=== PATIENT | female | born 1985 | race African-American/Black ===

== ENCOUNTER 2024-08-26 02:03 | Emergency (ER) | payer OTHER ==
[2024-08-26 02:13] VITALS: BP 148/86; BMI 29.1
[2024-08-26] MEDS ORDERED: FAMOTIDINE 20 MG/50 ML IVPB 20 MG/50 ML MG IVPB ONE (02:28)
[2024-08-26] MEDS ORDERED: ACETAMINOPHEN INJECTION 100 ML ONE (02:28)
[2024-08-26] MEDS ORDERED: ONDANSETRON 4 MG/2 ML VIAL ONE (02:28)
[2024-08-26] MEDS: SODIUM CHLORIDE 1,000 ML IV STA (02:49)
[2024-08-26] MEDS: ONDANSETRON 4 MG/2 ML VIAL IVPB ONE (02:50)
[2024-08-26] MEDS: ACETAMINOPHEN 1000 MG/100 ML BAG IVPB ONE (02:50)
[2024-08-26] MEDS: FAMOTIDINE 20 MG/50 ML IVPB 20 MG/50 ML MG IVPB ONE (02:50)
[2024-08-26] MEDS: ALBUTEROL SO4 2.5/IPRATROPIUM 0.5 INH SOL 3 ML VIAL.NEB. NEB SCH (02:51)
[2024-08-26 02:56] LABS: HEMATOCRIT 37.6 % (32.4-45.2); HEMOGLOBIN 12.7 GM/dL (10.7-15.3); MCH 31.9 pg (25.7-33.7); MCHC 33.8 g/dl (32.0-36.0); MEAN CELL VOLUME 94.5 fl (80-96); MEAN PLT VOLUME 6.7 fl (7.5-11.1); PLATELET COUNT 272 10^3/uL (134-434); RBC 3.98 M/mm3 (3.60-5.2); RDW 14.3 % (11.6-15.6); WHITE BLOOD COUNT 5.9 K/mm3 (4.0-10.0)
[2024-08-26] MEDS ORDERED: IBUPROFEN 600 MG TABLET (FP) PO ONE (02:58)
[2024-08-26] MEDS: IBUPROFEN 600 MG TABLET (FP) PO ONE (03:03)
[2024-08-26 03:40] LABS: POTASSIUM 4.2 mmol/L (3.5-5.1)
[2024-08-26 03:42] LABS: CALCIUM 8.7 mg/dL (8.5-10.1)
[2024-08-26 03:43] LABS: ALBUMIN 3.8 g/dl (3.4-5.0); BLOOD UREA NITROGEN 6.9 mg/dL (7-18)
[2024-08-26 03:46] LABS: CREATININE 0.9 mg/dL (0.55-1.3)
[2024-08-26 03:47] LABS: BILIRUBIN,TOTAL 0.2 mg/dL (0.2-1); TOT PROT 7.6 g/dl (6.4-8.2)
[2024-08-26 03:48] LABS: ANISOCYTOSIS 0; MACROCYTOSIS 0
[2024-08-26] MEDS ORDERED: DEXAMETHASONE SOD PHOSPHATE 10 MG/1 ML VIAL ONE (04:52)
[2024-08-26] MEDS ORDERED: MAGNESIUM SULFATE IN WATER 2 GM/50 ML IVPB IVPB ONE (04:52)
[2024-08-26] MEDS: MAGNESIUM SULFATE IN WATER 2 GM/50 ML IVPB IVPB ONE (05:04)
[2024-08-26] MEDS: DEXAMETHASONE SOD PHOSPHATE 10 MG/1 ML VIAL IVPUSH ONE (05:04)
[2024-08-26] MEDS: ALBUTEROL SO4 0.083% IH SOL 2.5 MG/3 ML VIAL.NEB. NEB SCH (05:05)
[2024-08-26] MEDS: FLUTICASONE PROP 0.05% 16 GM NASAL SPRAY NS ONE (06:18)
[2024-08-26 06:23] VITALS: PULSE 84; RESP 17; TEMP 98.6
[2024-08-26] MEDS: KETOROLAC TROMETHAMINE 30 MG/1 ML VIAL IVPUSH ONE (06:23)
== END 2024-08-26 06:29 | disposition home or self-care (01) ==
LOC: JER 02:03
PROC: 3E033GC Introduction of Other Therapeutic Substance into Peripheral Vein, Percutaneous Approach (ICD-10-PCS; principal; 2024-08-26)
PROC: 3E033GC Introduction of Other Therapeutic Substance into Peripheral Vein, Percutaneous Approach (ICD-10-PCS; 2024-08-26)
PROC: 3E033NZ Introduction of Analgesics, Hypnotics, Sedatives into Peripheral Vein, Percutaneous Approach (ICD-10-PCS; 2024-08-26)
PROC: 3E033GC Introduction of Other Therapeutic Substance into Peripheral Vein, Percutaneous Approach (ICD-10-PCS; 2024-08-26)
PROC: 3E033GC Introduction of Other Therapeutic Substance into Peripheral Vein, Percutaneous Approach (ICD-10-PCS; 2024-08-26)
PROC: 3E0337Z Introduction of Electrolytic and Water Balance Substance into Peripheral Vein, Percutaneous Approach (ICD-10-PCS; 2024-08-26)
PROC: 3E0F7GC Introduction of Other Therapeutic Substance into Respiratory Tract, Via Natural or Artificial Opening (ICD-10-PCS; 2024-08-26)
PROC: 3E0F7GC Introduction of Other Therapeutic Substance into Respiratory Tract, Via Natural or Artificial Opening (ICD-10-PCS; 2024-08-26)
DX: J10.1 Influenza due to other identified influenza virus with other respiratory manifestations (principal); R11.2 Nausea with vomiting, unspecified; M79.10 Myalgia, unspecified site; R50.9 Fever, unspecified; R09.81 Nasal congestion; Z20.822 Contact with and (suspected) exposure to COVID-19
CPT/HCPCS: 0241U-QW; 36415; 71046-TC-FY; 80053; 83690; 84703; 85025; 93005; 93010; 99285-25; J0131; J1100